=== PATIENT | male | born 1980 | race Hispanic/Latino ===

== ENCOUNTER → 2024-01-12 09:56 | Outpatient (REF) | payer OTHER, SELFPAY ==
[2024-01-12 12:25] LABS: TSH 6.99 uIU/ml (0.47-4.68)
== END ==
LOC: REG 09:56
PROVIDERS: ATTENDING PHYSICIAN Nurse Practitioner Adult Health
DX: E03.9 Hypothyroidism, unspecified (principal)
CPT/HCPCS: 36415; 84439; 84443

== ENCOUNTER → 2024-04-09 09:36 | Outpatient (REF) | payer OTHER, SELFPAY ==
[2024-04-09 11:28] LABS: TSH 5.48 uIU/ml (0.47-4.68)
== END ==
LOC: CLINIC 09:36
PROVIDERS: ATTENDING PHYSICIAN Nurse Practitioner Adult Health
DX: E03.9 Hypothyroidism, unspecified (principal)
CPT/HCPCS: 36415; 84439; 84443

== ENCOUNTER → 2024-07-09 08:48 | Outpatient (REF) | payer OTHER, SELFPAY ==
[2024-07-09 11:51] LABS: Free T4 0.73 ng/dl (0.78-2.19)
[2024-07-09 12:05] LABS: TSH 5.98 uIU/ml (0.47-4.68)
== END ==
LOC: REG 08:48
PROVIDERS: ATTENDING PHYSICIAN Nurse Practitioner Adult Health
DX: E03.9 Hypothyroidism, unspecified (principal)
CPT/HCPCS: 36415; 84439; 84443

== ENCOUNTER → 2024-10-19 07:41 | Outpatient (REF) | payer OTHER, SELFPAY ==
[2024-10-19 09:19] LABS: Free T4 0.79 ng/dl (0.78-2.19)
[2024-10-19 09:33] LABS: TSH 7.44 uIU/ml (0.47-4.68)
== END ==
LOC: CLINIC 07:41
PROVIDERS: ATTENDING PHYSICIAN Nurse Practitioner Adult Health
DX: E03.9 Hypothyroidism, unspecified (principal)
CPT/HCPCS: 36415; 84439; 84443

== ENCOUNTER → 2025-01-21 07:22 | Outpatient (REF) | payer OTHER, SELFPAY ==
[2025-01-21 08:52] LABS: Free T4 0.74 ng/dl (0.78-2.19)
[2025-01-21 09:06] LABS: TSH 6.13 uIU/ml (0.47-4.68)
== END ==
LOC: CLINIC 07:22
PROVIDERS: ATTENDING PHYSICIAN Nurse Practitioner Adult Health
DX: E03.9 Hypothyroidism, unspecified (principal)
CPT/HCPCS: 84439; 84443

== ENCOUNTER → 2025-04-17 06:22 | Outpatient (REF) | payer OTHER, SELFPAY ==
[2025-04-17 09:00] LABS: TSH 6.61 uIU/ml (0.47-4.68)
== END ==
LOC: CLINIC 06:22
PROVIDERS: ATTENDING PHYSICIAN Nurse Practitioner Adult Health
DX: E03.9 Hypothyroidism, unspecified (principal)
CPT/HCPCS: 36415; 84439; 84443

== ENCOUNTER → 2025-06-29 06:35 | Outpatient (REF) | payer OTHER, SELFPAY ==
[2025-06-29 07:54] LABS: Hematocrit 43.4 % (39.0-52.0); Hemoglobin 14.8 g/dL (13.0-18.0); Mean Corp Hgb Conc. 34.1 g/dL (33.0-37.0); Mean Corpuscular Volume 88.4 fL (80.0-94.0); Platelet Count 235 10^3/uL (130-400); Red Cell Dist. Width 12.9 % (11.5-14.5)
[2025-06-29 08:21] LABS: ALT (SGPT) 21 U/L (0-50); AST (SGOT) 21 U/L (17-59); Albumin 4.5 g/dl (3.5-5.0); Alkaline Phosphatase 65 U/L (38-126); Blood Urea Nitrogen 17 mg/dl (9-20); Calcium 9.9 mg/dl (8.4-10.2); Carbon Dioxide 27 mmol/L (22-30); Chloride 105 mmol/L (98-107); Glucose 89 mg/dl (70-99); Potassium 4.5 mmol/L (3.5-5.1); Sodium 139 mmol/L (135-145); Total Protein 7.6 g/dl (6.3-8.2); eGFR > 60.00
[2025-06-29 10:45] LABS: TSH 1.35 uIU/ml (0.47-4.68)
== END ==
LOC: CLINIC 06:35
PROVIDERS: ATTENDING PHYSICIAN Nurse Practitioner Adult Health
DX: E03.9 Hypothyroidism, unspecified (principal)
CPT/HCPCS: 36415; 80053; 84439; 84443; 85027

== ENCOUNTER → 2025-09-18 06:34 | Outpatient (REF) | payer OTHER, SELFPAY ==
[2025-09-18 08:18] LABS: TSH 3.29 uIU/ml (0.47-4.68)
== END ==
LOC: CLINIC 06:34
PROVIDERS: ATTENDING PHYSICIAN Nurse Practitioner Adult Health
DX: E03.9 Hypothyroidism, unspecified (principal)
CPT/HCPCS: 36415; 84439; 84443